=== PATIENT | female | born 1965 | race Caucasian/White ===

== ENCOUNTER 2020-11-24 14:04 | Inpatient (IN) | payer OTHER, SELFPAY ==
[2020-11-24] VITALS (31 sets, daily range): BP systolic 99–124; BP diastolic 66–86; PULSE 59–79; RESP 14–22; TEMP 35.9–37.1; O2SAT 94–99; BMI 31.2; BMI 31.3
--- NOTE | 2020-11-24 14:24 | CT_ITS ---
We are attempting to reach an attending provider to discuss findings. An addendum with communication details will be sent when the communication is complete. STUDY: CT BRAIN WITHOUT CONTRAST REASON FOR EXAM: Female, 55 years old. Neurologic deficit acute stroke possibly RADIATION DOSAGE (If Supplied By Facility): CTDIvol = ( ) mGy, DLP = ( ) mGycm TECHNIQUE: Transaxial CT imaging of the brain was performed without administration of intravenous contrast material. Individualized dose optimization techniques were used for this CT. COMPARISON: No relevant priors. FINDINGS: Brain parenchyma is without focal lesions, mass effect, acute intracranial hemorrhage, extra parenchymal fluid collections, hydrocephalus or herniation. The skull is intact. Left maxillary sinus is predominantly opacified with mucus. CT/STROKE Brain/Head without Cont IMPRESSION: 1. Normal CT brain. Electronically Signed: Dusty Pulliam MD at 14:44 EDT Tel , Service support ,
--- NOTE | 2020-11-24 14:24 | EKG12_ITS ---
Test Reason : CP Blood Pressure : / mmHG Vent. Rate : 068 BPM Atrial Rate : 068 BPM P-R Int : 164 ms QRS Dur : 084 ms QT Int : 406 ms P-R-T Axes : 058 042 023 degrees QTc Int : 431 ms Normal sinus rhythm Low voltage QRS Borderline ECG Confirmed by SUE HICKS, BOOGIE ([id number]), research editor NATALYA VIRK ([id number]) on 11/28/2020 9:29:50 AM Referred By: JOY/ADELITA Confirmed By:BOOGIE ROGERS MD
--- NOTE | 2020-11-24 14:25 | CT_ITS ---
We are attempting to reach an attending provider to discuss findings. An addendum with communication details will be sent when the communication is complete. STUDY: CTA HEAD AND NECK WITH CONTRAST REASON FOR EXAM: Female, 55 years old. Neuro deficit, acute, stroke suspected RADIATION DOSAGE (If Supplied By Facility): CTDIvol = ( 21.19 ) mGy, DLP = ( 617.73 ) mGycm TECHNIQUE: CT angiography was performed with a multi-detector CT scanner. Data acquisition was obtained from the skull base through the vertex following intravenous administration of IV 100mL Isovue-370. MIP images were reconstructed from the axial data set. Post-processing of the angiographic images was performed, with multiplanar reformation and 3D reconstruction. Individualized dose optimization techniques were used for this CT. COMPARISON: No relevant priors. FINDINGS: Normal bilateral petrous carotid arteries. Normal right cavernous carotid artery with a normal supraclinoid bifurcation. Normal left cavernous carotid artery with a normal supraclinoid bifurcation. Normal right A1 segments of the anterior cerebral artery. Normal left A1 segments of the anterior cerebral artery. Normal intact anterior communicating artery (ACOM). Normal bilateral A2 segments of the anterior cerebral arteries. Normal right M1 and M2 segments of the middle cerebral arteries, with a normal M1 bifurcation. Normal left M1 and M2 segments of the middle cerebral arteries, with a normal M1 bifurcation. Posterior communicating arteries are small and suboptimally seen. Normal bilateral vertebral arteries. Normal basilar artery with a normal basilar bifurcation. The visualized bilateral superior cerebellar (SCA) arteries are normal. Normal bilateral P1, P2 and visualized P3 segments of the posterior cerebral arteries. There is no demonstrated aneurysm of the douglas of [place]. There is no demonstrated abnormality of the visualized brain. AORTIC ARCH: Normal visualized aortic arch. Normal origins of the brachiocephalic, left common carotid, and left subclavian arteries. RIGHT CAROTID ARTERIES: Normal right common carotid artery (CCA). Normal right common carotid bulb. Normal origin of the right internal carotid (ICA) artery without a hemodynamically significant stenosis. Normal visualized cervical portion of the right internal carotid artery. Normal origin of the right external carotid artery (ECA). LEFT CAROTID ARTERIES: Normal left common carotid artery (CCA). Normal left common carotid bulb. Normal origin of the left internal carotid (ICA) artery without a hemodynamically significant stenosis. Normal visualized cervical portion of the left internal carotid artery. Normal origin of the left external carotid artery (ECA). VERTEBRAL ARTERIES: Normal bilateral vertebral arteries. Craniocervical junction and cervical spine are intact and aligned with patent canal. CT/STROKE CTA Head AND Neck W/Con IMPRESSION: Normal cervical and cranial arteries. Electronically Signed: Dusty Pulliam MD at 14:51 EDT Tel , Service support ,
--- NOTE | 2020-11-24 14:31 | ED.VIS.STROK ---
HPI History of Present Illness Chief Complaint: General Illness Informant: patient and spouse/S.O. Onset/Context/Timing Onset: Today (1330) and Weeks (2 weeks ago had vertigo and unable to drive.) Context: Sudden Onset Timing: Continuous (Since onset today at 1330) and Intermittent (Lasted 1 hour 2 weeks ago) Quality and Location: Positive for Difficulty with Ambulation Current Severity: Moderate Maximum Severity: Moderate Worsened by: Nothing Relieved by: Nothing Associated Symptoms Associated Symptoms: Positive for Headache, Nausea and - (Preferentially walking to the right, double vision, not feeling right); Negative for Vomiting and Chest Pain Narrative Narrative: Patient is a middle-aged woman with history of asthma who presents with vertiginous symptoms and diplopia. She has similar episode 2 weeks ago that lasted 1 hour. There is family history of hemorrhagic stroke as well as subarachnoid hemorrhage. She is a non-smoker. She denies alcohol use or drug use. She does complain of mild occipital headache. She does report double vision. She states now things are wobbly. states when she was walking she was walking preferentially to the right and he had to support her. She denies decreased hearing but does report ringing in her ears. She denies rhinorrhea, congestion or postnasal drainage. Denies sore throat. Denies trouble with speech or swallowing. She states she has been stuttering. She denies neck pain or neck stiffness. She denies cardiac respiratory symptoms. She does report nausea without vomiting. She denies diarrhea. She denies urologic symptoms. Prior similar symptoms: Yes Recent Illness/Hospitalization: No PFSH [facility] Medical History Asthma Allergy/AdvReac Type Severity Reaction Status Date / Time codeine Allergy Hives Verified 11/24/20 14:45 Iodinated Contrast Media AdvReac Vomiting Verified 11/24/20 14:45 [CONTRASTS] Social History household members: spouse and children Smoking Status: Never smoker alcohol intake: never substance use type: does not use ROS ROS ED Constitutional Constitutional ED: Denies chills, fever(s), subjective or sweats Eyes Eyes: Reports blurry vision and diplopia; Denies change in vision ENT ENT ED: Denies ear pain, rhinorrhea or sore throat Cardiovascular Cardiovascular: Denies chest pain, palpitations or racing heartbeat Respiratory/Chest Respiratory/Chest: Denies cough, dyspnea or dyspnea on exertion Gastrointestinal Gastrointestinal: Reports nausea; Denies abdominal pain, constipation, diarrhea or vomiting Genitourinary Genitourinary ED: Denies dysuria, hematuria or urinary frequency Musculoskeletal Musculoskeletal: Denies arthralgias, myalgias or neck pain Integumentary Denies rash Neurologic Neurologic: Reports headache(s); Denies paresthesias or weakness Endocrine Endocrinology: Denies polydipsia, polyphagia or polyuria Hematologic/Lymphatic Hematologic/Lymphatic: Denies easy bleeding or easy bruising Allergic/Immunologic Allergic/Immunologic ED: Denies urticaria EXAM Physical Exam Const Vital Signs: 11/24/20 14:05 11/24/20 14:18 11/24/20 14:32 Temperature 97.4 F L Temperature Source Temporal Pulse Rate 73 Respiratory Rate 16 Respiratory Effort Normal Non-Labored Respiratory Pattern Normal Blood Pressure 115/69 Blood Pressure Mean 84 Pulse Ox 98 98 Oxygen Delivery Method Room Air Room Air Positive well nourished, well developed and obese General Appearance ED: well developed Nutritional Appearance: obese HEENT Reports moist mucous membranes atraumatic Nose: other Other Details: Ears normal. Nares patent. Uvula midline. Posterior pharynx without erythema or exudate. Eyes PERRL General Eye ED: Yes scleral icterus and other Other Details: She does have nystagmus. This is worse with lateral movement to the right and left. ; Negative for pale conjunctiva Neck no lymphadenopathy, supple and no JVD Neck Narrative: Trachea is midline. There is no carotid bruit. Chest Wall inspection of chest normal and palpation of chest normal Resp normal respiratory effort and clear to auscultation bilaterally Cardio no murmurs Rate: regular rate Rhythm: regular rhythm Heart Sounds: S1 normal and S2 normal GI normal to inspection, nondistended, normoactive bowel sounds, soft to palpation and non-tender Back/Spine no CVA tenderness Cervical Spine: Negative for cervical spine tenderness Thoracic Spine / Upper Back: Negative for thoracic spinal tenderness Lumbar Spine / Lower Back: Negative for lumbar spinal tenderness Extremity normal to inspection General Extremety ED: Negative for deformity, edema or tenderness General Extremity: Negative for deformity or edema Neuro oriented x3, CN's II-XII intact bilaterally and No no sensory deficits noted Neuro Narrative: Patient has truncal ataxia. Ashanti-Hallpike maneuver was negative. There was no nystagmus noted. She states her dizziness got worse when I turned her head to the left. The eye askew test was negative. The hint test was negative. When the patient attempted to rise from supine position she had difficulty and was falling to the right. Sensorium / Orientation: alert Speech: speech normal Motor Exam: Negative for strength 5/5 throughout Psych mental status grossly normal Skin no wounds Lesions: no lesions Rashes: no rashes STROKE Vital Signs/Narrative: Vital Signs Temp Pulse Resp BP Pulse Ox 11/24/20 14:32 98 11/24/20 14:05 97.4 F L 73 16 115/69 98 Inital Vital Signs reviewed: Yes NIHSS Initial: 1a Level of Consciousness: 0 1b LOC Questions (Score 2 if aphasic/stupor): 0 1c LOC Commands (Only score 1st attempt): 0 2 Best Gaze (If aphasic, use reflexive mvmts.): 0 3 Visual: 0 4 Facial Palsy: 0 5 Motor Arm Right (UN = amputation/fusion): 0 5 Motor Arm Left: 1 6 Motor Leg Right: 0 6 Motor Leg Left: 1 7 Limb ataxia (Only + if out of proportion): 1 8 Sensory (Aphasia/stupor=0 or 1, coma=2): 1 9 Best Language: 0 10 Dysarthria (mute, coma=2, intubated=UN): 0 11 Extinction and Inattention (only scored if +): 0 Total Score: 4 MDM MDM MDM Narrative Medical decision making narrative: With truncal ataxia no nystagmus reported double vision started 1330 concern for posterior circulatory stroke. Patient had symptoms that resolved 2 weeks ago. Duration of those symptoms at that time was 1 hour. Differential diagnosis includes posterior stroke, labyrinthitis or possible other cause Case discussed with [facility] neurologist. TPA was ordered. Concerned this represents a posterior stroke. Lab Data Attestation: I reviewed the patient's lab results. Labs: Laboratory Results - last 24 hr 11/24/20 11/24/20 14:25 14:25 WBC 5.6 RBC 4.42 Hgb 12.8 Hct 38.3 MCV 86.7 MCH 29.0 MCHC 33.4 RDW Std Deviation 39.5 RDW Coeff of Noelle 12.6 Plt Count 215 MPV 9.7 Immature Gran % (Auto) 0.400 Neut % (Auto) 51.4 Lymph % (Auto) 39.9 [place] % (Auto) 7.1 Eos % (Auto) 0.7 Baso % (Auto) 0.5 Absolute Neuts (auto) 2.9 Absolute Lymphs (auto) 2.24 Nucleated RBC % 0 PT 13.2 INR 1.1 APTT 25.5 Radiography Diagnostic Testing: Radiology Impression Brain CT 11/24/20 14:24 IMPRESSION: 1. Normal CT brain. Electronically Signed: Dusty Pulliam MD at 14:44 EDT Tel , Service support , ADDENDUM: 11/24/20 1451 IMPRESSION: 1. Normal CT brain. N.B. : The above information has been verbally conveyed by Dusty Pulliam MD to Kermit Villareal MD, on 11/24/2020 14:44:49 (ET). Electronically Signed: Dusty Pulliam MD at 14:44 EDT Tel , Service support , Head/Neck CTA 11/24/20 14:25 IMPRESSION: Normal cervical and cranial arteries. Electronically Signed: Dusty Pulliam MD at 14:51 EDT Tel , Service support , EKG Initial EKG: Interpretation: Sinus Rhythm Comments: Ventricular rate is 68. FL interval is 164 ms. Cures duration 84 ms. QT duration 406 ms. [place] is normal. There is borderline low voltage. Treatment and Re-Evaluation Comments:: [facility] neurologist recommends TPA. TPA was ordered. Patient consented. Stroke Documentation Questions Stroke Team Activated: Yes Reviewed Inclusion/Exclusion criteria: Yes Was Patient considered for Endovascular Intervention?: Yes No contraindications for IV Alteplase (t-PA) administration.: Yes Alteplase (t-PA) risks, benefits, alternative discussed: Yes Critical Care Time Critical Care Time: Yes Critical care time (excluding procedures): 30-74 minutes (34), Including time spent: (History, physical, documentation, discussion with radiologist regarding CT without contrast and CTA of the head neck, discussion with [facility] neurologist), Discussing w/Patient &/or Family/Director [employer], Discussing w/Consultants and Arranging Admission or Transfer Discharge Plan Dx/Rx/DC Orders Clinical Impression: Acute arterial ischemic stroke, multifocal, posterior circulation Disposition Disposition: Acute Care Hospital [facility]
[2020-11-24 14:37] LABS: Absolute Lymphocyte Count 2.24 X10^3/uL (0.83-4.51); Absolute Neutrophil Count 2.9 X10^3/uL (2.0-7.7); Basophil# 0.03 X10^3/uL; Basophil% 0.5 % (0-1); Eosinophil# 0.04 X10^3/uL; Eosinophils% 0.7 % (0-5); Hematocrit 38.3 % (37-47); Hemoglobin 12.8 g/dL (12.0-15.0); Lymphocyte # 2.24 X10^3/ul (0.83-4.51); Lymphocyte % 39.9 % (19-41); Mean Corp Hgb Conc 33.4 g/dL (32-36); Mean Corpuscular Volume 86.7 fL (81-99); Mean Platelet Vol. 9.7 fl (6.2-12.0); Monocyte% 7.1 % (0-10); NRBC Flagged by Analyzer 0 % (0-5); Neutrophil # 2.88 X10^3/uL (2.7-7.7); Neutrophil % 51.4 % (47-70); Platelet Count 215 K/mm3 (150-450); RBC Distribution Width CV 12.6 % (11.6-14.6); RBC Distribution Width SD 39.5 fl (35.1-43.9); Red Blood Count 4.42 M/mm3 (4.2-5.4); White Blood Count 5.6 K/mm3 (4.4-11.0)
--- NOTE | 2020-11-24 14:43 | ED.RN ---
THIS NURSE GOT OFF THE PHONE WITH [facility] AT 1435 [facility] DOC HAS NOT BEAMED IN YET AT 1443
[2020-11-24 14:46] LABS: International Normalized Ratio 1.1; Partial Thromboplast Time 25.5 Seconds (24.1-36.2); Prothrombin Time (Protime)PT. 13.2 SECONDS (11.7-14.9)
[2020-11-24] MEDS: Ondansetron 4 MG/2 ML Vial IV (14:46)
[2020-11-24 15:02] LABS: Anion Gap 8 (5-15); BUN 12 mg/dL (7-18); BUN/Creat Ratio 11.7 RATIO (10-20); Calcium,Total 9.1 mg/dL (8.5-10.1); Chloride 105 mmol/L (98-107); Creatinine, Serum 1.03 mg/dL (0.55-1.02); EST Glomerular Filtration Rate 60 mL/min (>60); Est Glom Filt Rate - Afr Amer 72 mL/min (>60); Estimated Creatinine Clearance 56.84 ml/min; Glucose 103 mg/dL (74-106); Potassium 3.8 mmol/L (3.5-5.1); Sodium Level 138 mmol/L (136-145)
[2020-11-24 15:16] LABS: Bedside Glucose 105 mg/dL (70-110)
--- NOTE | 2020-11-24 15:32 | RAD_ITS ---
STUDY: X-RAY CHEST REASON FOR EXAM: Female, 55 years old. Neuro deficit, acute, stroke suspected TECHNIQUE: Frontal view COMPARISON: None. FINDINGS: The lungs are clear and expanded. There is no demonstrated pleural abnormality. Normal size heart. Normal mediastinum and tim. Normal visualized pulmonary arteries. Normal visualized aortic arch and descending thoracic aorta. Normal visualized thoracic spine. Normal visualized ribs, clavicles, and shoulders. There is no demonstrated abnormality of the visualized soft tissue structures of the upper abdomen. RAD/Chest 1 View IMPRESSION: Normal x-ray examination of the chest. Electronically Signed: Lester Barrera DO at 16:39 EDT Tel [phone], Service support ,
--- NOTE | 2020-11-24 15:36 | ED.RN ---
THIS NURSE CALLED ICU TO GIVE REPORT, ICU WAS NOT READY TO GET REPORT.
--- NOTE | 2020-11-24 15:49 | ECHOD_ITS ---
Reason For Study: TIA. STROKE Procedure This was a 2D Doppler, Color Flow transthoracic echocardiogram. Exam performed portable in ICU/CCU. Left Ventricle Normal LV size. Left ventricular systolic function is normal. The estimated ejection fraction is 60 %. Stage 2 diastolic dysfunction. No regional wall motion abnormalities noted. Right Ventricle Normal RV size. Normal systolic function. Atria Normal left atrium. Normal right atrium. Bubble contrast study negative for right to left interatrial shunt. Mitral Valve Normal mitral valve. Tricuspid Valve Normal tricuspid valve. Mild tricuspid valve insufficiency. Pulmonary artery systolic pressure is 26 mmHg. Aortic Valve Normal aortic valve. Trisinus/trileaflet aortic valve. Pulmonic Valve Normal pulmonic valve. Great Vessels Normal aortic root. The pulmonary artery is normal size. Normal inferior vena cava. Pericardium/Pleural No pericardial effusion. Medication Performed a rapid injection of agitated mix of 9 cc saline and 1cc air to assess for atrial septal defect. MMode/2D Measurements & Calculations LVIDd: 4.3 cm IVSd: 0.93 cm Ao root diam: 3.4 cm LVIDs: 2.8 cm LVPWd: 0.92 cm RVDd: 3.5 cm FS: 36.1 % LAV(MOD-bp): 37.3 ml LVAd ap4: 26.2 cm2 LVAd ap2: 24.6 cm2 LAV(MOD-bp) Indexed: 19.4 ml/m2 LVLd ap4: 7.8 cm LVLd ap2: 7.8 cm LAV(MOD-sp2): 32.7 ml EDV(MOD-sp4): 72.4 ml EDV(MOD-sp2): 63.8 ml LAV(MOD-sp4): 37.6 ml EDV(sp4-el): 74.5 ml EDV(sp2-el): 65.9 ml LVAs ap4: 13.6 cm2 LVAs ap2: 11.5 cm2 LVLs ap4: 6.1 cm LVLs ap2: 5.5 cm ESV(MOD-sp4): 25.5 ml ESV(MOD-sp2): 20.4 ml ESV(sp4-el): 25.9 ml ESV(sp2-el): 20.5 ml EF(MOD-sp4): 64.8 % EF(MOD-sp2): 68.1 % EF(sp4-el): 65.3 % SV(MOD-sp4): 47.0 ml SV(MOD-sp2): 43.4 ml SV(sp4-el): 48.6 ml LA A4 area: 15.7 cm2 LA dimension(2D): 3.4 cm RA A4 area: 12.2 cm2 Time Measurements MV dec time: 0.26 sec Doppler Measurements & Calculations MV E max damon: 88.8 cm/sec Lat Peak E' Damon: 9.8 cm/sec Med Peak E' Damon: 7.7 cm/sec MV A max damon: 80.1 cm/sec E/E' lat: 9.0 E/E' med: 11.5 MV E/A: 1.1 Ao V2 max: 145.1 cm/sec LV V1 max: 111.8 cm/sec PA V2 max: 79.7 cm/sec Ao max P.4 mmHg LV V1 max P.0 mmHg TR max damon: 235.8 cm/sec TR max P.3 mmHg ECHO/Echo Complete Interpretation Summary Normal LV size. Left ventricular systolic function is normal. The estimated ejection fraction is 60 %. Stage 2 diastolic dysfunction. Bubble contrast study negative for right to left interatrial shunt. Ordering Physician: Ashley Harrison Performed By: Kayy Ramirez, AMADA, RVT
[2020-11-24] MEDS: 0.9% Normal Saline 1,000 ML 100 ML IV (15:59)
--- NOTE | 2020-11-24 16:07 | ED.RN ---
report called to icu.
--- NOTE | 2020-11-24 16:29 | ED.RN ---
TOOK PT TO FLOOR AT 1605 GAVE BEDSIDE REPORT WITH ICU MALE RN AND DID A BEDSIDE NIHSS.
--- NOTE | 2020-11-24 16:58 | HP.PCM.HOS_ITS ---
HPI - General General Date of Admission: 11/24/20 HPI Narrative GANESH DING, is a 55 F who presented to the emergency department at [facility] on 11/24/2020 complaining of lightheadedness and dizziness. She reports she and her were walking through a store here in [place] today when she acutely became lightheadedness and dizzy. She reports that she does not remember what else happened. Her states that she had multiple complaints and he had to help her to the car. She does have history of migraine headache but she states that her auras are different than the presentation currently. Upon presentation she had a mild occipital headache which she did not report on my review she also complained of diplopia which is now resolved. Her biggest complaint is that she felt weak all over. Per previous documentation she also complained of paresthesia on the left side of her face although upon my exam she had paresthesia at V1 on the left and V3 on the right. Her felt that when she was ambulating she was preferentially walking to the right. And she currently states she just does not feel well. She reports approximately 2 weeks ago while walking in a [place] store she had a similar episode that resolved spontaneously. The onset of symptoms was at 1330 and her last episode 1 week ago lasted approximately 1 hour from start to finish. Given her symptoms [facility] telestroke was consulted and tPA was recommended. tPA was initiated and we were consulted for admission. Upon my examination her symptoms were somewhat inconsistent and had some questionable effort at times. Her vital signs have been completely unremarkable. Her BMP showed a mildly elevated creatinine at 1.03. Cardiac enzymes were normal as well. A CTA was performed and showed normal cervical and cranial arteries. Her EKG was normal sinus rhythm without any acute ST-T wave changes. Chest x-ray was performed and was within normal limits. She admitted to ICU given tPA administration. [facility] Medical History (Updated 11/24/20 @ 17:[address] Ashley Harrison, ) Asthma Seasonal allergic rhinitis Home Medications Multivitamin Gummies 2 PO/SL DAILY 11/24/20 [History Last Taken 11/24/20 0800] Unobtainable 11/24/20 [History Last Taken Unknown] Allergy/AdvReac Type Severity Reaction Status Date / Time codeine Allergy Hives Verified 11/24/20 14:45 Iodinated Contrast Media AdvReac Vomiting Verified 11/24/20 14:45 [CONTRASTS] Family History Father Hypertension Mother Brain aneurysm Grandfather Brain aneurysm Social History household members: spouse and children Smoking Status: Never smoker alcohol intake: never substance use type: does not use ROS Review of Systems ROS Unobtainable: Denies due to encephalopathy, due to endotracheal tube, due to mental condition, due to mental status or other Constitutional Constitutional: Denies anorexia, change in weight, chills, fatigue, fever(s), malaise, night sweats, weakness or other Eyes Eyes: Reports blurry vision and double vision; Denies change in eye color, change in vision, discharge from eye(s), erythema, eye pain, loss of vision or other ENT HEENT: Reports abnormal hearing, nasal congestion and other Details: Ringing in the ears ; Denies dysphagia, ear pain, epistaxis, headache(s), hearing loss, nasal discharge, post nasal drip, sinus pressure or sore throat Cardiovascular Cardiovascular: Denies chest pain, claudication, dyspnea on exertion, edema, lightheadedness, orthopnea, palpitations, paroxysmal nocturnal dyspnea, rapid heart rate, syncope or other Respiratory/Chest Respiratory/Chest: Denies cough, dyspnea, excessive phlegm production, hemoptysis, productive cough, shortness of breath at rest, shortness of breath with exertion, wheezing or other Gastrointestinal Gastrointestinal: Denies abdominal pain, coffee ground emesis, constipation, diarrhea, dyspepsia, hematemesis, hematochezia, loose stools, melena, nausea, vomiting or other Genitourinary Genitourinary: Denies burning urination, difficulty urinating, dysuria, hematuria, nocturia, urinary frequency, urinary hesitancy, urinary incontinence, urinary urgency or other Musculoskeletal Musculoskeletal: Denies arthralgias, back pain, joint pain, joint stiffness, joint swelling, myalgias, neck pain or other Neurologic Neurologic: Reports abnormal gait, disequilibrium, dizziness, focal weakness, headache(s), numbness, paresthesias and tingling; Denies abnormal speech, confusion, seizure-like activity, seizures, syncope, tremor(s) or other Psychiatric Psychiatric: Denies anxiety, depression, homicidal ideation, suicidal ideation or other Endocrine Endocrinology: Denies change in body appearance, cold intolerance, excessive sweating, heat intolerance, polydipsia, polyuria or other Hematologic/Lymphatic Hematologic/Lymphatic: Denies anemia, easy bleeding, easy bruising, lymphadenopathy or other Allergic/Immunologic Allergic/Immunologic: Denies rhinitis, hives, eczemia, asthma or other Vital Signs Vital Signs Vital Signs: 11/24/20 14:05 11/24/20 14:18 11/24/20 14:32 Temperature 97.4 F L Temperature Source Temporal Pulse Rate 73 Respiratory Rate 16 Respiratory Effort Normal Non-Labored Respiratory Pattern Normal Blood Pressure 115/69 Blood Pressure Mean 84 Blood Pressure Source Blood Pressure Position Blood Pressure Location Pulse Ox 98 98 Oxygen Delivery Method Room Air Room Air 11/24/20 14:54 11/24/20 14:57 11/24/20 15:11 Temperature 97.3 F L Temperature Source Oral Pulse Rate 74 70 Respiratory Rate 15 18 Respiratory Effort Respiratory Pattern Blood Pressure 111/72 113/79 113/79 Blood Pressure Mean 85 90 Blood Pressure Source Monitor Blood Pressure Position Semi-Fowlers Blood Pressure Location Right Arm Pulse Ox 95 95 Oxygen Delivery Method Room Air Room Air 11/24/20 15:12 11/24/20 15:24 11/24/20 15:27 Temperature 97.7 F L 97.7 F L 97.4 F L Temperature Source Temporal Temporal Temporal Pulse Rate 68 69 71 Respiratory Rate 22 H 17 15 Respiratory Effort Respiratory Pattern Blood Pressure 102/70 107/77 116/76 Blood Pressure Mean 80 87 89 Blood Pressure Source Monitor Monitor Blood Pressure Position Semi-Fowlers Semi-Fowlers Blood Pressure Location Right Arm Right Arm Pulse Ox 96 94 95 Oxygen Delivery Method Room Air Room Air Room Air 11/24/20 15:42 11/24/20 15:57 Temperature 97.3 F L 98.7 F Temperature Source Temporal Temporal Pulse Rate 70 64 Respiratory Rate 20 H 17 Respiratory Effort Respiratory Pattern Blood Pressure 105/66 99/67 Blood Pressure Mean 79 77 Blood Pressure Source Monitor Monitor Blood Pressure Position Semi-Fowlers Semi-Fowlers Blood Pressure Location Right Arm Right Arm Pulse Ox 95 99 Oxygen Delivery Method Room Air Room Air Weight Weight: 85.3 kg Body Mass Index (BMI) 31.3 Physical Exam Const alert, oriented x3 and no apparent distress Constitutional Narrative: Overweight middle-aged white female lying in bed, at bedside, appears weak General Appearance: cooperative HEENT normocephalic, head/scalp atraumatic, hearing grossly normal bilaterally, moist oral mucous membranes and oropharynx normal; Negative for dentition normal HEENT Narrative: Fair dentition, Mallampati 2, no thrush Mouth: oral and palatal mucosa normal Eyes PERRL, EOMs intact bilaterally and conjunctivae normal Eyes Narrative: Pain with right lateral gaze, no nystagmus noted Neck no lymphadenopathy, supple, no JVD and no carotid bruits Resp normal respiratory effort, no retractions, no use of accessory muscles and clear to auscultation bilaterally Cardio regular rate, regular rhythm, S1 normal heart sound, S2 normal heart sound, no murmurs, no rub, no gallops, no clicks and no JVD GI normal to inspection, nondistended, normoactive bowel sounds, soft to palpation, non-tender and non-distended; Negative for hepatosplenomegaly Auscultation: hyperactive bowel sounds and hypoactive bowel sounds Palpation: tender and guarding; Negative for hernia Extremity normal to inspection, full ROM and no clubbing, cyanosis or edema Peripheral Pulses: Yes pulses 2+ throughout Skin no rashes or lesions noted, no wounds, skin turgor normal, no jaundice, no petechiae and no mottling Neuro oriented x3, moves all extremities and deep tendon reflexes 2+ bilaterally Neuro Narrative: V1 left decreased sensation, V3 right decreased sensation, performed finger to thumb accurately but slow, no pronator drift, decreased bilateral lower extremity strength with straight leg raise but decreased downward pressure with contralateral limb with effort Coordination / Balance: [id number] test normal Speech: speech normal Psych Psych Narrative: Affect was flat Mood & Affect: anxious Results Lab / Micro Data Attestation: I reviewed the patient's lab results. Result Diagrams: 11/24/20 14:25 11/24/20 14:25 Labs: Laboratory Results - last 24 hr 11/24/20 11/24/20 11/24/20 14:25 14:25 14:25 WBC 5.6 RBC 4.42 Hgb 12.8 Hct 38.3 MCV 86.7 MCH 29.0 MCHC 33.4 RDW Std Deviation 39.5 RDW Coeff of Noelle 12.6 Plt Count 215 MPV 9.7 Immature Gran % (Auto) 0.400 Neut % (Auto) 51.4 Lymph % (Auto) 39.9 [place] % (Auto) 7.1 Eos % (Auto) 0.7 Baso % (Auto) 0.5 Absolute Neuts (auto) 2.9 Absolute Lymphs (auto) 2.24 Nucleated RBC % 0 PT 13.2 INR 1.1 APTT 25.5 Sodium 138 Potassium 3.8 Chloride 105 Carbon Dioxide 25.0 Anion Gap 8 BUN 12 Creatinine 1.03 H Estim Creat Clear Calc 56.84 Est GFR (MDRD) Af Amer 72 Est GFR (MDRD) Non-Af 60 BUN/Creatinine Ratio 11.7 Glucose 103 Calcium 9.1 Troponin I < 0.015 POC Glucose 11/24/20 14:25 WBC RBC Hgb Hct MCV MCH MCHC RDW Std Deviation RDW Coeff of Noelle Plt Count MPV Immature Gran % (Auto) Neut % (Auto) Lymph % (Auto) [place] % (Auto) Eos % (Auto) Baso % (Auto) Absolute Neuts (auto) Absolute Lymphs (auto) Nucleated RBC % PT INR APTT Sodium Potassium Chloride Carbon Dioxide Anion Gap BUN Creatinine Estim Creat Clear Calc Est GFR (MDRD) Af Amer Est GFR (MDRD) Non-Af BUN/Creatinine Ratio Glucose Calcium Troponin I POC Glucose [address] 11/24/20 14:24 IMPRESSION: 1. Normal CT brain. Electronically Signed: Dusty Pulliam MD at 14:44 EDT Tel , Service support , ADDENDUM: 11/24/20 1451 IMPRESSION: 1. Normal CT brain. N.B. : The above information has been verbally conveyed by Dusty Pulliam MD to Kermit Villareal MD, on 11/24/2020 14:44:49 (ET). Electronically Signed: Dusty Pulliam MD at 14:44 EDT Tel , Service support , Head/Neck CTA 11/24/20 14:25 IMPRESSION: Normal cervical and cranial arteries. Electronically Signed: Dusty Pulliam MD at 14:51 EDT Tel , Service support , ADDENDUM: 11/24/20 1501 IMPRESSION: Normal cervical and cranial arteries. N.B. : The above information has been verbally conveyed by Dusty Pulliam MD to Kermit Villareal MD, on 11/24/2020 14:54:46 (ET). Electronically Signed: Dusty Pulliam MD at 14:51 EDT Tel , Service support , Chest X-Ray 11/24/20 15:32 IMPRESSION: Normal x-ray examination of the chest. Electronically Signed: Lester Barrera DO at 16:39 EDT Tel [phone], Service support , Assessment & Plan Assessment/Plan (1) Acute arterial ischemic stroke, multifocal, posterior circulation: PLAN: Diplopia/dizziness/weakness/paresthesias -Rule out posterior circulation stroke -Neuro exam is somewhat inconsistent -TPA given in emergency department between 2 and 2:30 PM -MRI tomorrow after 24 hours post TPA -Echocardiogram -Check lipids -Hold aspirin and DVT prophylaxis until 24 hours post TPA -As needed antihypertensives -Consider neurology consult tomorrow -Doubt acute stroke Asthma -As needed albuterol Seasonal allergies -Nasal spray DVT prophylaxis -SCDs CODE STATUS -Full code Charges/Coding Visit Charges Inpatient E&M: 79597 Init Hosp L2
--- NOTE | 2020-11-24 19:27 | NURSING ---
Pt assisted onto bedpan, large amount clear yellow urine noted.
--- NOTE | 2020-11-24 19:37 | NURSING ---
two rings placed in specimen cup in med drawer. ring#1 gold with diamonds and 2 bands, ring #2 gold band with diamonds.
[2020-11-24] MEDS: Fluticasone 0.05% 1 SPRAY NASAL.SRY 2 SPRAY NASAL (21:09)
--- NOTE | 2020-11-24 21:12 | NURSING ---
Pt complains of right frontal headache rating 5/10. Will notify
[2020-11-24] MEDS: Acetaminophen 325 MG Tablet 650 MG PO (21:25)
[2020-11-25] VITALS (27 sets, daily range): BP systolic 93–118; BP diastolic 55–79; PULSE 58–84; RESP 12–17; TEMP 36.1–36.7; O2SAT 93–99; BMI 31.3
[2020-11-25] MEDS: 0.9% Saline Lock 10 ML Syringe IV (02:50)
[2020-11-25 03:00] LABS: Absolute Lymphocyte Count 3.01 X10^3/uL (0.83-4.51); Absolute Neutrophil Count 3.2 X10^3/uL (2.0-7.7); Basophil# 0.04 X10^3/uL; Basophil% 0.6 % (0-1); Eosinophil# 0.12 X10^3/uL; Eosinophils% 1.8 % (0-5); Hematocrit 35.7 % (37-47); Hemoglobin 11.6 g/dL (12.0-15.0); Lymphocyte # 3.01 X10^3/ul (0.83-4.51); Mean Corp Hgb Conc 32.5 g/dL (32-36); Mean Corpuscular Hgb 28.7 pg (27.0-32.0); Mean Corpuscular Volume 88.4 fL (81-99); Monocyte# 0.45 X10^3/uL; Monocyte% 6.6 % (0-10); NRBC Flagged by Analyzer 0 % (0-5); Neutrophil % 46.7 % (47-70); Platelet Count 194 K/mm3 (150-450); RBC Distribution Width CV 12.8 % (11.6-14.6); RBC Distribution Width SD 41.7 fl (35.1-43.9); Red Blood Count 4.04 M/mm3 (4.2-5.4); White Blood Count 6.8 K/mm3 (4.4-11.0)
[2020-11-25 03:22] LABS: ALB/GLOB Ratio 1.1 RATIO (0.9-2.4); AST(SGOT) 23 U/L (15-37); Alanine Aminotransfer ALT/SGPT 32 U/L (13-56); Albumin, Serum 3.4 g/dL (3.2-5.0); Alkaline Phosphatase 68 U/L (45-117); Anion Gap 7 (5-15); BUN 11 mg/dL (7-18); BUN/Creat Ratio 11.9 RATIO (10-20); Calcium,Total 8.4 mg/dL (8.5-10.1); Chloride 108 mmol/L (98-107); Cholesterol 165 mg/dL (200); Creatinine, Serum 0.93 mg/dL (0.55-1.02); EST Glomerular Filtration Rate 67 mL/min (>60); Est Glom Filt Rate - Afr Amer 81 mL/min (>60); Estimated Creatinine Clearance 62.95 ml/min; Glucose 88 mg/dL (74-106); High Density Lipoprotein 38 mg/dL; Magnesium 2.1 mg/dL (1.6-2.6); Phosphorus 3.5 mg/dL (2.5-4.9); Potassium 3.9 mmol/L (3.5-5.1); Protein, Total 6.4 g/dL (6.4-8.2); Sodium Level 141 mmol/L (136-145); Thyroid Stim Hormone (TSH) 1.06 uIU/mL (0.358-3.74); Triglycerides 145 mg/dL; Very Low Density Lipoprotein 29 mg/dL (5-40)
--- NOTE | 2020-11-25 06:06 | EX.PCM.CONCC ---
Assessment & Plan Assessment/Plan (1) Acute arterial ischemic stroke, multifocal, posterior circulation: PLAN: RECOMMENDATIONS: 1. Continue routine management per stroke/TPA protocol. 2. Echocardiogram is pending. 3. MRI this evening. 4. Continue as needed antihypertensives. 5. PT/OT evaluations tomorrow. IMPRESSIONS: 1. Acute ischemic CVA status post TPA Clinical concern initially was for acute ischemic CVA. However, this seems doubtful. Nevertheless, the patient did receive TPA and will be monitored in the intensive care unit per protocol, with plans to obtain an MRI brain later today. In the interim, the patient will remain on bedrest with echocardiogram pending. Plan for PT/OT evaluations tomorrow. Continue as needed antihypertensives. 2. History of asthma/seasonal allergic rhinitis Complicates care, management, recovery and prognosis. Continue home medications as indicated. This note was generated with [employer] software. It may contain incorrect words, spelling, and punctuation that were not noted in checking the note before signing. HPI Consult Data Date of Consult: 11/25/20 HPI Narrative Reason for Consultation: Acute CVA s/p TPA HPI Narrative: The patient is a 55-year-old female, with a history as outlined below, who presented to the emergency department on November 24 after developing dizziness, lightheadedness and vision changes while shopping at a local establishment. She did report similar symptoms occurred approximately 2 weeks ago, which were self-limited in nature. On presentation to the emergency department, the patient was noted to be afebrile and hemodynamically stable. She was maintaining appropriate oxygen saturations on room air. Laboratory evaluation revealed a normal white blood cell count. Coagulation profile was within normal limits. Chemistry profile was notable for a creatinine of 1.03. CT head was unremarkable. CTA head and neck revealed normal cervical and cranial arteries. The patient was evaluated by neurology and felt to be appropriate for TPA administration. The patient was then admitted to the medical intensive care unit for further management. [facility] Medical History (Updated 11/24/20 @ 17:[address] Ashley Harrison DO) Asthma Seasonal allergic rhinitis Home Medications Multivitamin Gummies 2 PO/SL DAILY 11/24/20 [History Last Taken 11/24/20 0800] Unobtainable 11/24/20 [History Last Taken Unknown] Allergy/AdvReac Type Severity Reaction Status Date / Time codeine Allergy Hives Verified 11/24/20 14:45 Iodinated Contrast Media AdvReac Vomiting Verified 11/24/20 14:45 [CONTRASTS] Family History Father Hypertension Mother Brain aneurysm Grandfather Brain aneurysm Social History household members: spouse and children Smoking Status: Never smoker alcohol intake: never substance use type: does not use ROS Constitutional Constitutional: Denies body ache(s), chills, fatigue, fever(s) or headache(s) Eyes Eyes: Denies blurry vision or change in vision ENT HEENT: Reports dizziness Cardiovascular Cardiovascular: Reports dizziness; Denies chest pain, dyspnea or edema Respiratory/Chest Respiratory/Chest: Denies chest tightness, cough or dyspnea Gastrointestinal Gastrointestinal: Denies abdominal pain, diarrhea, nausea or vomiting Genitourinary Genitourinary: Denies difficulty urinating Musculoskeletal Musculoskeletal: Denies arthralgias Integumentary Integumentary: Denies lesions, rash or skin ulcer Neurologic Neurologic: Denies abnormal gait, abnormal speech or syncope Psychiatric Psychiatric: Denies anxiety or depression Endocrine Endocrinology: Denies fatigue Hematologic/Lymphatic Hematologic/Lymphatic: Denies easy bleeding or easy bruising Physical Exam Const alert, oriented x3 and no apparent distress General Appearance: cooperative HEENT normocephalic, head/scalp atraumatic and moist oral mucous membranes Eyes PERRL, EOMs intact bilaterally and conjunctivae normal Neck supple General: trachea midline Lymph Lymphatic: no lymphadenopathy noted Resp normal respiratory effort Auscultation: Negative for rales, rhonchi or wheezes Cardio regular rate and regular rhythm GI normal to inspection, nondistended, normoactive bowel sounds Extremity no clubbing, cyanosis or edema Skin no rashes or lesions noted Neuro oriented x3, CN's II-XII intact bilaterally and moves all extremities Neuro Narrative: NIH: 0 Psych cooperative and affect normal Appearance: well kempt Lab / Micro Data Result Diagrams: 11/25/20 02:45 11/25/20 02:45 Labs: Laboratory Results - last 24 hr 11/24/20 11/24/20 11/24/20 14:25 14:25 14:25 WBC 5.6 RBC 4.42 Hgb 12.8 Hct 38.3 MCV 86.7 MCH 29.0 MCHC 33.4 RDW Std Deviation 39.5 RDW Coeff of Noelle 12.6 Plt Count 215 MPV 9.7 Immature Gran % (Auto) 0.400 Neut % (Auto) 51.4 Lymph % (Auto) 39.9 [place] % (Auto) 7.1 Eos % (Auto) 0.7 Baso % (Auto) 0.5 Absolute Neuts (auto) 2.9 Absolute Lymphs (auto) 2.24 Nucleated RBC % 0 PT 13.2 INR 1.1 APTT 25.5 Sodium 138 Potassium 3.8 Chloride 105 Carbon Dioxide 25.0 Anion Gap 8 BUN 12 Creatinine 1.03 H Estim Creat Clear Calc 56.84 Est GFR (MDRD) Af Amer 72 Est GFR (MDRD) Non-Af 60 BUN/Creatinine Ratio 11.7 Glucose 103 Calcium 9.1 Phosphorus Magnesium Total Bilirubin AST ALT Alkaline Phosphatase Troponin I < 0.015 Total Protein Albumin Globulin Albumin/Globulin Ratio Triglycerides Cholesterol LDL Cholesterol VLDL Cholesterol HDL Cholesterol TSH POC Glucose 11/24/20 11/25/20 11/25/20 14:25 02:45 02:45 WBC 6.8 RBC 4.04 L Hgb 11.6 L Hct 35.7 L MCV 88.4 MCH 28.7 MCHC 32.5 RDW Std Deviation 41.7 RDW Coeff of Noelle 12.8 Plt Count 194 MPV 10.0 Immature Gran % (Auto) 0.300 Neut % (Auto) 46.7 L Lymph % (Auto) 44.0 H [place] % (Auto) 6.6 Eos % (Auto) 1.8 Baso % (Auto) 0.6 Absolute Neuts (auto) 3.2 Absolute Lymphs (auto) 3.01 Nucleated RBC % 0 PT INR APTT Sodium 141 Potassium 3.9 Chloride 108 H Carbon Dioxide 26.0 Anion Gap 7 BUN 11 Creatinine 0.93 Estim Creat Clear Calc 62.95 Est GFR (MDRD) Af Amer 81 Est GFR (MDRD) Non-Af 67 BUN/Creatinine Ratio 11.9 Glucose 88 Calcium 8.4 L Phosphorus 3.5 Magnesium 2.1 Total Bilirubin 0.40 AST 23 ALT 32 Alkaline Phosphatase 68 Troponin I Total Protein 6.4 Albumin 3.4 Globulin 3.0 Albumin/Globulin Ratio 1.1 Triglycerides 145 Cholesterol 165 LDL Cholesterol 98 VLDL Cholesterol 29 HDL Cholesterol 38 L TSH 1.06 POC Glucose [address] 11/24/20 14:24 IMPRESSION: 1. Normal CT brain. Electronically Signed: Dusty Pulliam MD at 14:44 EDT Tel , Service support , ADDENDUM: 11/24/20 1451 IMPRESSION: 1. Normal CT brain. N.B. : The above information has been verbally conveyed by Dusty Pulliam MD to Kermit Villareal MD, on 11/24/2020 14:44:49 (ET). Electronically Signed: Dusty Pulliam MD at 14:44 EDT Tel , Service support , Head/Neck CTA 11/24/20 14:25 IMPRESSION: Normal cervical and cranial arteries. Electronically Signed: Dusty Pulliam MD at 14:51 EDT Tel , Service support , ADDENDUM: 11/24/20 1501 IMPRESSION: Normal cervical and cranial arteries. N.B. : The above information has been verbally conveyed by Dusty Pulliam MD to Kermit Villareal MD, on 11/24/2020 14:54:46 (ET). Electronically Signed: Dusty Pulliam MD at 14:51 EDT Tel , Service support , Chest X-Ray 11/24/20 15:32 IMPRESSION: Normal x-ray examination of the chest. Electronically Signed: Lester Barrera DO at 16:39 EDT Tel [phone], Service support , Charges/Coding Visit Charges Inpatient E&M: 68026 Init Hosp L3
--- NOTE | 2020-11-25 07:38 | PN.HOSP_ITS ---
Subjective Subjective Patient is a 55-year-old lady in relatively good health who presented with dizziness diplopia and generalized weakness. There was a suspicion of possible posterior circulation CVA patient did receive TPA and subsequently admitted to the intensive care unit for further management Objective Data Objective Data Vital Signs: Vital Signs Temp Pulse Resp BP Pulse Ox 98 F 64 14 104/71 96 11/25/20 05:00 11/25/20 07:00 11/25/20 07:00 11/25/20 07:00 11/25/20 07:00 Oxygen Delivery Method Room Air Weight: 89.7 kg Body Mass Index (BMI) 31.3 Intake & Output: Intake and Output for Last 24 Hours 11/23/20 11/24/20 11/25/20 23:59 23:59 23:59 Intake Total 319.3 / 369.3 150 / 150 Balance 319.3 / 369.3 150 / 150 Lab / Micro Data Result Diagrams: 11/25/20 02:45 11/25/20 02:45 Labs: Laboratory Results - last 24 hr 11/24/20 11/24/20 11/24/20 14:25 14:25 14:25 WBC 5.6 RBC 4.42 Hgb 12.8 Hct 38.3 MCV 86.7 MCH 29.0 MCHC 33.4 RDW Std Deviation 39.5 RDW Coeff of Noelle 12.6 Plt Count 215 MPV 9.7 Immature Gran % (Auto) 0.400 Neut % (Auto) 51.4 Lymph % (Auto) 39.9 [place] % (Auto) 7.1 Eos % (Auto) 0.7 Baso % (Auto) 0.5 Absolute Neuts (auto) 2.9 Absolute Lymphs (auto) 2.24 Nucleated RBC % 0 PT 13.2 INR 1.1 APTT 25.5 Sodium 138 Potassium 3.8 Chloride 105 Carbon Dioxide 25.0 Anion Gap 8 BUN 12 Creatinine 1.03 H Estim Creat Clear Calc 56.84 Est GFR (MDRD) Af Amer 72 Est GFR (MDRD) Non-Af 60 BUN/Creatinine Ratio 11.7 Glucose 103 Calcium 9.1 Phosphorus Magnesium Total Bilirubin AST ALT Alkaline Phosphatase Troponin I < 0.015 Total Protein Albumin Globulin Albumin/Globulin Ratio Triglycerides Cholesterol LDL Cholesterol VLDL Cholesterol HDL Cholesterol TSH POC Glucose 11/24/20 11/25/20 11/25/20 14:25 02:45 02:45 WBC 6.8 RBC 4.04 L Hgb 11.6 L Hct 35.7 L MCV 88.4 MCH 28.7 MCHC 32.5 RDW Std Deviation 41.7 RDW Coeff of Noelle 12.8 Plt Count 194 MPV 10.0 Immature Gran % (Auto) 0.300 Neut % (Auto) 46.7 L Lymph % (Auto) 44.0 H [place] % (Auto) 6.6 Eos % (Auto) 1.8 Baso % (Auto) 0.6 Absolute Neuts (auto) 3.2 Absolute Lymphs (auto) 3.01 Nucleated RBC % 0 PT INR APTT Sodium 141 Potassium 3.9 Chloride 108 H Carbon Dioxide 26.0 Anion Gap 7 BUN 11 Creatinine 0.93 Estim Creat Clear Calc 62.95 Est GFR (MDRD) Af Amer 81 Est GFR (MDRD) Non-Af 67 BUN/Creatinine Ratio 11.9 Glucose 88 Calcium 8.4 L Phosphorus 3.5 Magnesium 2.1 Total Bilirubin 0.40 AST 23 ALT 32 Alkaline Phosphatase 68 Troponin I Total Protein 6.4 Albumin 3.4 Globulin 3.0 Albumin/Globulin Ratio 1.1 Triglycerides 145 Cholesterol 165 LDL Cholesterol 98 VLDL Cholesterol 29 HDL Cholesterol 38 L TSH 1.06 POC Glucose 105 Radiography Diagnostic Testing: Radiology Impression Brain CT 11/24/20 14:24 IMPRESSION: 1. Normal CT brain. Electronically Signed: Dusty Pulliam MD at 14:44 EDT Tel , Service support , ADDENDUM: 11/24/20 1451 IMPRESSION: 1. Normal CT brain. N.B. : The above information has been verbally conveyed by Dusty Pulliam MD to Kermit Villareal MD, on 11/24/2020 14:44:49 (ET). Electronically Signed: Dusty Pulliam MD at 14:44 EDT Tel , Service support , Head/Neck CTA 11/24/20 14:25 IMPRESSION: Normal cervical and cranial arteries. Electronically Signed: Dusty Pulliam MD at 14:51 EDT Tel , Service support , ADDENDUM: 11/24/20 1501 IMPRESSION: Normal cervical and cranial arteries. N.B. : The above information has been verbally conveyed by Dusty Pulliam MD to Kermit Villareal MD, on 11/24/2020 14:54:46 (ET). Electronically Signed: Dusty Pulliam MD at 14:51 EDT Tel , Service support , Chest X-Ray 11/24/20 15:32 IMPRESSION: Normal x-ray examination of the chest. Electronically Signed: Lester Barrera DO at 16:39 EDT Tel [phone], Service support , Physical Exam Narrative GENERAL: cooperative HEENT: Atraumatic; EYES; Anicteric, Normal Conjunctiva NECK; supple, normal thyroid, RESPIRATORY: Diminished to auscultation CARDIOVASCULAR: Regular S1 S2, GI: soft, normoactive bowel sounds, : No Renal angle tenderness; EXTREMITIES: No edema, no clubbing, MUSCULOSKELETAL: no muscle waisting NEURO: Awake; no lateralizing signs. SKIN: No Rash PSYCH; Flat affect Assessment & Plan Assessment/Plan (1) Acute arterial ischemic stroke, multifocal, posterior circulation: PLAN: Patient is a 55-year-old lady in relatively good health who presented with dizziness diplopia and generalized weakness. There was a suspicion of possible posterior circulation CVA patient did receive TPA and subsequently admitted to the intensive care unit for further management 1. Suspected posterior circulation CVA ?Patient did receive TPA on 11/24/2020. Scheduled to undergo MRI 24 hours after receiving the TPA. Consult was placed to [facility] neurology. Patient is also scheduled to undergo 2D echo 2. Bronchial asthma -currently not in exacerbation aerosol treatment as needed 3. Seasonal allergies ?Patient is on inhaled corticosteroids 4. DVT prophylaxis ?SCDs for now Charges/Coding Visit Charges Inpatient E&M: 66602 Subs Hosp L3
[2020-11-25] MEDS: Fluticasone 0.05% 1 SPRAY NASAL.SRY 2 SPRAY NASAL (09:23)
--- NOTE | 2020-11-25 10:35 | NURSING ---
RNCM Initial Assessment Note: Introduced role of RN CM to patient. Patient is alert, oriented and able to participate in RN CM Assessment. Care providers, pharmacy, and demographics verified. Admit Dx: Posterior Ischemic Stroke Re-Admit: No Barriers/Issues: None, has good family support and can assist her with any needs. PCP: PCP is no longer in network for [facility] and she will need to find another one. Denies PCP list as patient lives in [place], [place] and states will find one. PCP- Destiney Pierre Specialists: None Insurance: MMO Rx Benefit: Yes LNOK: Juan Rodas LW/HPOA: None. Aware to notify staff if wishing to complete this hospital stay. Provided AD information and aware can return as an outpatient to complete at a later time if she wishes. Living Arrangements/ADLs: Lives with her and two children that are in high school in a [facility], 2-3 steps to enter. Independent with ambulation and ADLs. Transportation: Both patient and her drive. or her oldest dtr will transport upon DC. DME: None HHC/SNF: None Goal: Home with family support. F/u PT/OT. Denies any additional questions, concerns, issues or needs with DC planning at this time. Aware RNCM will remain available should any needs arise. DC PLAN: Home and f/u PT/OT for any potential needs. MARY King
[2020-11-25] MEDS: Acetaminophen 325 MG Tablet 650 MG PO (11:25)
--- NOTE | 2020-11-25 11:41 | NURSING ---
Patient complaining of a right frontal headache, rating 6/10 pain. NIH 2. Tylenol given, notified.
--- NOTE | 2020-11-25 14:30 | MRI_ITS ---
STUDY: MRI BRAIN WITHOUT CONTRAST REASON FOR EXAM: Female, 55 years old. stroke TECHNIQUE: Standardized multiplanar fat and water weighted pulse sequences were obtained. COMPARISON: CT head 11/24/2020. FINDINGS: No intracranial mass, mass effect, or midline shift. No hemorrhage, territorial infarct, or acute ischemia. Normal size of the ventricles and extra-axial spaces for the patient''s age. Normal white matter tracts of the supratentorial brain. Normal bilateral basal ganglia. Normal thalami. There is no extra-axial fluid accumulation. Normal flow voids within the major intracranial circulation suggesting patency by spin echo criteria. Normal sella turcica, pituitary gland, infundibular stalk, optic chiasm and hypothalamus. Normal midbrain, dalton and medulla. Normal cerebellum. Normal basal cisterns. Normal bilateral temporal bones. Normal bilateral internal auditory canals. Opacification of the left maxillary sinus. Moderate mucosal thickening in the left ethmoid sinus. Normal calvarium and skull base. Normal visualized soft tissue structures. MRI/Brain without Contrast IMPRESSION: 1. No acute findings. 2. Chronic sinusitis. Electronically Signed: Sanaz Palacios MD at 17:48 EDT Tel , Service support ,
--- NOTE | 2020-11-25 16:46 | CHAPLAIN ---
Type of Pastoral Visit _x__ Initial Visit ___ Follow-up Visit ___ On-call Visit ___ General Patient Visit ___ Spiritual Assessment ___ Family Conference ___ Bereavement ___ Rapid Response ___ Code Blue ___ Other (describe below) Pastoral Care Referral From _x__ Patient ___ Family ___ Nurse ___ Physician ___ Manager Environmental Health And Safety ___ Tip Banding Machine Operator ___ Other (describe below) Sacrament/Intervention _x__ Active listening ___ Anointing ___ Episcopal ___ Bereavement ___ Communion _x__ Pam exploration ___ _x__ Life review _x__ Prayer ___ Reconciliation ___ Sacrament of Sick _x__ Supportive presence ___ Wedding ___ Other (describe below) Pastoral Comments patient admits to her anxiety and desire to focus on positive things; pt had moments of fearfulness during episodes of stroke but states she is much better; pt sees this as opportunity to refocus and gain new priorities; pt requests prayer support.
--- NOTE | 2020-11-25 17:59 | TELEMED_ITS ---
[facility] Telemed has confirmed receipt of a request for visit. This document confirms receipt of the order initiating the consult. To find the results of the consultation, please view the patient's reports for the scanned Telemed Consult.
--- NOTE | 2020-11-25 18:30 | NURSING ---
[facility] neurologist assessing patient, reviewing CT and MRI scans. Notified neurologist of NIH assessments and results. Also notified MD of patients complaints of headaches while here in ICU.
[2020-11-26] VITALS (10 sets, daily range): BP systolic 94–110; BP diastolic 58–76; PULSE 60–75; RESP 12–21; TEMP 36.3–36.6; O2SAT 96–99; BMI 31.3
--- NOTE | 2020-11-26 07:17 | DS.PCM_ITS ---
Providers Date of Admission: 11/24/20 Primary Care Physician: Radha Primary Care Phys Consultations 11/24/20 14:57 Consult: Business Intelligence Developer / Pulmonary Medicine Routine Consulting Provider: Pulmonary Medicine melissa Sierra Reason for Consult: stroke for alteplase EMERGENT Consult: No MD Notified: Yes Date Notified: 11/25/20 Time Notified: 06:00 Method of Notification: Verbal Comments:: If admitted, Hospitalist will consult Business Intelligence Developer Reason For Visit: POSTERIOR ISCHEMIC STROKE Diagnosis Discharge Diagnosis (1) Acute arterial ischemic stroke, multifocal, posterior circulation: Status: Acute Code(s): I63.539 - Cerebral infarction due to unspecified occlusion or stenosis of unspecified posterior cerebral artery Medications at Discharge Home Medications Multivitamin Gummies 2 PO/SL DAILY 11/24/20 aspirin 81 mg PO DAILY #60 tab 11/26/20 atorvastatin 40 mg PO QHS #60 tab 11/26/20 Hospital Course Summary of Care Provided Minutes Spent on Discharge: 35 Hospital Course: Patient is a 55-year-old lady in relatively good health who presented with dizziness diplopia and generalized weakness. There was a suspicion of possible posterior circulation CVA patient did receive TPA and subsequently admitted to the intensive care unit for further management 1. Suspected posterior circulation CVA ?Patient did receive TPA on 11/24/2020. Scheduled to undergo MRI 24 hours after receiving the TPA. Consult was placed to [facility] neurology. Patient is also sched uled to undergo 2D echo. Patient MRI was negative for acute CVA. 2D echo done was negative for [id number] intra-arterial shunts EF was estimated to be 60%. Case was discussed with the consulting neurologist who felt a differential diagnosis of patient's symptoms was complex migraine and if she had a recurrence patient will be treated as such. She was for all intents and purposes treated as a case of posterior circulation CVA discharged on aspirin and statin therapy 2. Bronchial asthma -currently not in exacerbation aerosol treatment as needed 3. Seasonal allergies ?Patient is on inhaled corticosteroids 4. DVT prophylaxis ?SCDs for now Physical Exam Narrative GENERAL: cooperative HEENT: Atraumatic; EYES; Anicteric, Normal Conjunctiva NECK; supple, normal thyroid, RESPIRATORY: Diminished to auscultation CARDIOVASCULAR: Regular S1 S2, GI: soft, normoactive bowel sounds, : No Renal angle tenderness; EXTREMITIES: No edema, no clubbing, MUSCULOSKELETAL: no muscle waisting NEURO: Awake; no lateralizing signs. SKIN: No Rash PSYCH; Flat affect Weight / BMI Weight Weight: 88.9 kg Body Mass Index (BMI) 31.3 ABG / Lab / Microbiology Data Result Diagrams: 11/25/20 02:45 11/25/20 02:45 Radiography Diagnostic Testing: Radiology Impression Echocardiogram 11/24/20 15:49 Interpretation Summary Normal LV size. Left ventricular systolic function is normal. The estimated ejection fraction is 60 %. Stage 2 diastolic dysfunction. Bubble contrast study negative for right to left interatrial shunt. Ordering Physician: Ashley Harrison Performed By: Kayy Ramirez, AMADA, RVT Brain MRI 11/25/20 14:30 IMPRESSION: 1. No acute findings. 2. Chronic sinusitis. Electronically Signed: Sanaz Palacios MD at 17:48 EDT Tel , Service support , D/C Instructions Discharge Diet: No restrictions Discharge Activity: Return to Normal Activity Call your doctor if you observe: Fever of 101 or Higher, Shortness of breath, Fainting spells and Chest pain Meaningful Use Info Meaningful Use Diagnoses (Choose all that apply): Ischemic CVA CVA Therapy Assessed for PT,OT and/or ST?: Yes Ischemic Stroke Antithrombotic order at d/c?: Yes Dx of Atrial fib/flutter?: No Statins at discharge?: Yes Primary Dx Acute Ischemic CVA?: Yes IV tPA ordered during stay?: Yes Discharge Plan Admission Admit Date/Time: 11/24/20 15:49 Primary Reason for Your Visit: SUSPECTED CVA Attending Provider: Romie Evans Primary Care Provider: Care Physician,No Primary Consulting Providers: Red Fernandez ; Zion Moody ; Marlene Rogers QUARTER LINING SMOOTHER Discharge Orders/Prescriptions Prescriptions: New aspirin 81 mg tablet,chewable 81 mg PO DAILY Qty: 60 RF: 0 atorvastatin 40 mg tablet 40 mg PO QHS Qty: 60 RF: 0 Continued Multivitamin Gummies 2 PO/SL DAILY RF: 0 Referrals / Follow Up: Care Physician,No Primary [Primary Care Provider] - Disposition Disposition (needs filled in before D/C Order can be placed): Home, self care Charges/Coding Visit Charges Inpatient E&M: 90595 Disch Hosp
--- NOTE | 2020-11-26 07:54 | CASEMGMT ---
PHQ-9 not complete as at this time appears pt did not have CVA. KAMLA Barreto
--- NOTE | 2020-11-26 08:20 | PCM.PN.INT ---
Assessment & Plan Assessment/Plan (1) Acute arterial ischemic stroke, multifocal, posterior circulation: PLAN: RECOMMENDATIONS: 1. Continue routine management per stroke protocol. 2. Continue as needed antihypertensives. 3. PT/OT evaluations. 4. Will sign off from a pulmonary/critical care perspective. IMPRESSIONS: 1. Suspected ischemic CVA status post TPA Clinical concern initially was for acute ischemic CVA. However, this seems doubtful. MRI brain was unremarkable. Neurology input indicated the possibility that the patient's symptoms may be secondary to complex migraine. 2. History of asthma/seasonal allergic rhinitis Complicates care, management, recovery and prognosis. Continue home medications as indicated. This note was generated with [employer] dictation software. It may contain incorrect words, spelling, and punctuation that were not noted in checking the note before signing. Subjective Subjective The patient was seen and examined at the bedside this morning. Events from the last 24 hours have been reviewed. The patient is currently afebrile, hemodynamically stable and maintaining appropriate oxygen saturations on room air. The patient is without any focal neurological deficits. MRI brain completed yesterday was unremarkable. Objective Data Objective Data The patient's most recent lab work, culture data and imaging studies have all been personally reviewed. Vital Signs: Vital Signs Temp Pulse Resp BP Pulse Ox 97.4 F L 60 14 97/72 98 11/26/20 06:00 11/26/20 06:00 11/26/20 06:00 11/26/20 06:00 11/26/20 05:00 Oxygen Delivery Method Room Air Weight: 195 lb 15.855 oz Body Mass Index (BMI) 31.3 Intake & Output: Intake and Output for Last 24 Hours 11/24/20 11/25/20 11/26/20 23:59 23:59 23:59 Intake Total 319.3 / 369.3 150 / 150 0 / 0 Output Total 750 / 750 0 / 0 Balance 319.3 / 369.3 -600 / -600 0 / 0 Lab / Micro Data Attestation: I reviewed the patient's lab results. Result Diagrams: 11/25/20 02:45 11/25/20 02:45 Radiography Diagnostic Testing: Radiology Impression Echocardiogram 11/24/20 15:49 Interpretation Summary Normal LV size. Left ventricular systolic function is normal. The estimated ejection fraction is 60 %. Stage 2 diastolic dysfunction. Bubble contrast study negative for right to left interatrial shunt. Ordering Physician: Ashley Harrison Performed By: Kayy Ramirez, RDCS, RVT Brain MRI 11/25/20 14:30 IMPRESSION: 1. No acute findings. 2. Chronic sinusitis. Electronically Signed: Sanaz Palacios MD at 17:48 EDT Tel , Service support , Physical Exam Const alert, oriented x3 and no apparent distress General Appearance: cooperative HEENT normocephalic, head/scalp atraumatic and moist oral mucous membranes Eyes PERRL, EOMs intact bilaterally and conjunctivae normal Neck supple General: trachea midline Lymph Lymphatic: no lymphadenopathy noted Resp normal respiratory effort Auscultation: Negative for rales, rhonchi or wheezes Cardio regular rate and regular rhythm GI normal to inspection, nondistended, normoactive bowel sounds Extremity no clubbing, cyanosis or edema Skin no rashes or lesions noted Neuro oriented x3, CN's II-XII intact bilaterally and moves all extremities Neuro Narrative: NIH: 0 Psych cooperative and affect normal Appearance: well kempt Charges/Coding Visit Charges Inpatient E&M: 59335 Subs Hosp L2
[2020-11-26] MEDS: Fluticasone 0.05% 1 SPRAY NASAL.SRY 2 SPRAY NASAL (10:32)
--- NOTE | 2020-11-26 13:56 | PCM.PN.INT ---
Assessment & Plan Assessment/Plan (1) Acute arterial ischemic stroke, multifocal, posterior circulation: PLAN: RECOMMENDATIONS: 1. Continue routine management per stroke protocol. 2. Continue as needed antihypertensives. 3. PT/OT evaluations. 4. Will sign off from a pulmonary/critical care perspective. IMPRESSIONS: 1. Suspected ischemic CVA status post TPA Clinical concern initially was for acute ischemic CVA. However, this seems doubtful. MRI brain was unremarkable. Neurology input indicated the possibility that the patient's symptoms may be secondary to complex migraine. 2. History of asthma/seasonal allergic rhinitis Complicates care, management, recovery and prognosis. Continue home medications as indicated. This note was generated with Crzyfish dictation software. It may contain incorrect words, spelling, and punctuation that were not noted in checking the note before signing. Subjective Subjective The patient was seen and examined at the bedside this morning. Events from the last 24 hours have been reviewed. The patient is currently afebrile, hemodynamically stable and maintaining appropriate oxygen saturations on room air. The patient is without any focal neurological deficits. MRI brain completed yesterday was unremarkable. Objective Data Objective Data Vital Signs: Vital Signs Temp Pulse Resp BP Pulse Ox 97.4 F L 69 14 110/76 97 11/26/20 06:00 11/26/20 08:00 11/26/20 08:00 11/26/20 08:00 11/26/20 10:53 Oxygen Delivery Method Room Air Weight: 195 lb 15.855 oz Body Mass Index (BMI) 31.3 Intake & Output: Intake and Output for Last 24 Hours 11/24/20 11/25/20 11/26/20 23:59 23:59 23:59 Intake Total 319.3 / 369.3 150 / 150 0 / 0 Output Total 750 / 750 0 / 0 Balance 319.3 / 369.3 -600 / -600 0 / 0 Lab / Micro Data Result Diagrams: 11/25/20 02:45 11/25/20 02:45 Radiography Diagnostic Testing: Radiology Impression Echocardiogram 11/24/20 15:49 Interpretation Summary Normal LV size. Left ventricular systolic function is normal. The estimated ejection fraction is 60 %. Stage 2 diastolic dysfunction. Bubble contrast study negative for right to left interatrial shunt. Ordering Physician: Ashley Harrison Performed By: Kayy Ramirez, BRUCECS, RVT Brain MRI 11/25/20 14:30 IMPRESSION: 1. No acute findings. 2. Chronic sinusitis. Electronically Signed: Sanaz Palacios MD at 17:48 EDT Tel , Service support , Physical Exam Const alert, oriented x3 and no apparent distress General Appearance: cooperative HEENT normocephalic, head/scalp atraumatic and moist oral mucous membranes Eyes PERRL, EOMs intact bilaterally and conjunctivae normal Neck supple General: trachea midline Lymph Lymphatic: no lymphadenopathy noted Resp normal respiratory effort Auscultation: Negative for rales, rhonchi or wheezes Cardio regular rate and regular rhythm GI normal to inspection, nondistended, normoactive bowel sounds Extremity no clubbing, cyanosis or edema Skin no rashes or lesions noted Neuro oriented x3, CN's II-XII intact bilaterally and moves all extremities Neuro Narrative: NIH: 0 Psych cooperative and affect normal Appearance: well kempt Charges/Coding Visit Charges Inpatient E&M: 41782 Subs Hosp L2
== END 2020-11-26 12:25 | disposition home or self-care (01) | DRG 63 ==
LOC: ED 15:09 → ICU 15:36
PROVIDERS: Admitting Provider Internal Medicine; Emergency Provider Emergency Medicine; Visit Provider Internal Medicine
DX: I63.539 Cerebral infarction due to unspecified occlusion or stenosis of unspecified posterior cerebral artery (principal); H53.2 Diplopia; J45.909 Unspecified asthma, uncomplicated
CPT/HCPCS: 70450; 70496; 70498; 70551; 71045; 80048; 80053; 80061; 82962; 83735; 84100; 84443; 84484; 85025; 85610; 85730; 93005; 93306; 97161; 97166; 99285; J2997; J7030; Q9957; Q9967; A4216; J2405; J3490